=== PATIENT | female | born 1990 | race Caucasian/White ===

== ENCOUNTER 2022-06-27 06:06 | Emergency (ER) | payer BC ==
[~2022-06-27] VITALS: Ht 170.2 cm; Wt 95.3 kg
[2022-06-27 06:20] VITALS: BP_SYST 122
[2022-06-27] MEDS ORDERED: METF-833 PO (06:26)
[2022-06-27] MEDS ORDERED: SPIR25TA6 PO (06:26)
[2022-06-27] MEDS ORDERED: METF-379 PO (06:26)
[2022-06-27] MEDS ORDERED: BIRTH CONTROL PO (06:27)
--- NOTE | 2022-06-27 06:31 | NUR ---
Patient ambulatory to bed 2 for evaluation and treatment
[2022-06-27] MEDS ORDERED: ZIT250 PO (07:00)
[2022-06-27] MEDS ORDERED: BENZ1LOZ73 PO (07:00)
[2022-06-27] MEDS ORDERED: PRED50TA PO (07:00)
--- NOTE | 2022-06-27 07:12 | NUR ---
FLU AND COVID SWAB OBTAINED BY [facility] AND SENT TO LAB
--- NOTE | 2022-06-27 07:12 | NUR ---
Patient given written and verbal discharge instructions and verbalizes understanding. ER MD discussed with patient the results and treatment provided. Patient in stable condition. ID arm band removed. IV catheter removed intact and dressing applied, no active bleeding. Rx of meds antibotic given. Patient educated on pain management and to follow up with PMD. Pain Scale 0/10. Opportunity for questions provided and answered. Medication side effect fact sheet provided. pt left with her belonging
[2022-06-27 07:13] VITALS: BP_SYST 122
--- NOTE | 2022-06-27 07:16 | NUR ---
STREP TEST NOT OBTAINED PT WAS DISCHARGED BEFOREHAND
== END 2022-06-27 07:12 | disposition home or self-care (01) ==
LOC: SED 06:06
DX: K12.2 Cellulitis and abscess of mouth (principal); R05.9 Cough, unspecified; R09.81 Nasal congestion; J02.9 Acute pharyngitis, unspecified; Z79.899 Other long term (current) drug therapy; Z20.822 Contact with and (suspected) exposure to COVID-19
CPT/HCPCS: 36415; 99283